=== PATIENT | female | born 1945 | race Caucasian/White ===

== ENCOUNTER 2016-08-14 06:12 | Day surgery (SDC) | payer MEDICARE, OTHER ==
--- NOTE | ~2016-08-14 | OP ---
Record Of Operation [facility] [address] [place]. [address] NAME: KESHIA JENKINS : 41 STATUS : REG [facility]#: [id number] AGE: 71 ADM/REG DATE : 08/14/16 MR#: [id number] REPORT SERV DATE: 08/14/16 DICTATED BY: ASHISH CANTRELL DATE: 08/14/16 REPORT STATUS : Draft TRANSCRIBED BY: MODL DATE: 08/14/16 DATE OF PROCEDURE: PROCEDURE PERFORMED: Fiberoptic bronchoscopy. Bronchoscopy with endobronchial ultrasound. Transbronchial needle aspiration of 3 separate lymph node stations. INDICATION: Bronchogenic carcinoma with adenopathy. DESCRIPTION OF PROCEDURE: After the risks and benefits were explained, informed consent was obtained. General anesthesia was provided by Anesthesiology with placement of an LMA artificial airway. The bronchoscope was advanced via the LMA and beyond the vocal cords without difficulty. The entire bronchial tree was inspected. There were no endobronchial lesions, though there were changes of chronic bronchitis throughout. After airway inspection, we switched to the endobronchial ultrasound scope. We identified a fairly large level 7 lymph node which was sampled total of six times, two for direct examination, two for cell block, and two more for direct examination. Then, the level 10R lymph node which was also sampled four times and then, level 4R lymph node which was smaller, located between the pulmonary artery and aorta, but easily visualized and that was sampled for a direct cytologic examination and cell block. Direct examination did not reveal any malignancy in any of the samples, though the samples did contain lymphoid tissue. 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 AJ/MARYSOL Ashish Cantrell M.D. / [id number] CC: Erin Hamm M.D.
[~2016-08-14 06:12] MED LIST: ANOROELLIPTA INH; ASAB PO; ATIVAN2 MG PO; ATV1 PO; CALTRA600D PO; CRESTOR10 PO; CRESTOR40 MG PO; FOSAMAX70 MG PO; KLONO1 PO; MEP50TAB PO; NEXIUM40 PO; NITROSTAT0.4 MG SL; OS500+D PO; PEP20 PO; PLAV; PLAVIX PO; PRIN10 PO; PRIN20 PO; PRIN5 PO; PROTON; PROTONIX PO; TOPXL100 PO; TOPXL50 PO; WELLXL300 PO; ZANTAC 150 PO
[2016-08-14 06:31] LABS: HEMATOCRIT 39.4 % (36.0-48.0); HEMOGLOBIN 13.1 g/dL (12.0-16.0)
[2016-08-14 06:44] LABS: BUN (BLOOD UREA NITROGEN) 20 MG/DL (6-23); CALCIUM, SERUM 8.8 MG/DL (8.5-10.4); CHLORIDE, SERUM 107 MMOL/L (96-112); CO2 (CARBON DIOXIDE) 26 MMOL/L (24-34); CREATININE 1.11 MG/DL (0.55-1.02); GFR AFRICAN AMERICAN 57 ML/MIN (>=60); GFR NON AFRICAN AMERICAN 49 ML/MIN (>=60); GLUCOSE, SERUM 95 MG/DL (60-99); POTASSIUM, SERUM 4.4 MMOL/L (3.5-5.3); SODIUM, SERUM 142 MMOL/L (135-148)
[2017-03-15] MEDS ORDERED: NITROSTAT0.4 MG SL (13:42)
[2017-03-15] MEDS ORDERED: ALBUTEROL0.083 % INH (13:43)
[2017-03-16] MEDS ORDERED: ZANTAC150 MG PO (05:38)
== END 2016-08-14 23:59 | disposition home health service (06) ==
LOC: DMU 06:12
PROVIDERS: Anesthesiology; Internal Medicine Pulmonary Disease
PROC: 07B74ZX Excision of Thorax Lymphatic, Percutaneous Endoscopic Approach, Diagnostic (ICD-10-PCS; principal; 2016-08-14 08:00)
DX: R59.0 Localized enlarged lymph nodes (principal); I10 Essential (primary) hypertension; J44.9 Chronic obstructive pulmonary disease, unspecified; I25.10 Atherosclerotic heart disease of native coronary artery without angina pectoris; E78.00 Pure hypercholesterolemia, unspecified; K21.9 Gastro-esophageal reflux disease without esophagitis; M19.90 Unspecified osteoarthritis, unspecified site; F41.9 Anxiety disorder, unspecified; Z79.82 Long term (current) use of aspirin; Z79.899 Other long term (current) drug therapy; Z90.89 Acquired absence of other organs; Z95.1 Presence of aortocoronary bypass graft; Z98.51 Tubal ligation status; Z98.890 Other specified postprocedural states
CPT/HCPCS: 80048; 85014; 85018; 88172; 88173; 88177; 88305; 93005; A9270-GY; C1725; J2250; J2405; J3010

== ENCOUNTER 2016-09-04 16:13 | Emergency (ER) | payer MEDICARE, OTHER ==
[2016-09-04 12:29] LABS: BASOPHILS 0.4 %; BASOPHILS ABSOLUTE 0.02 10/3/uL (0.0-0.16); EOSINOPHILS ABSOLUTE 0.28 10/3/uL (0.0-0.53); ER CBC TAT 0 Hrs 09 Mins; HEMATOCRIT 37.9 % (36.0-48.0); HEMOGLOBIN 12.4 g/dL (12.0-16.0); IMMATURE GRANULOCYTES 0.4 %; IMMATURE GRANULOCYTES ABSOLUTE 0.02 10/3/uL (0.0-0.11); LYMPHOCYTES ABSOLUTE 0.56 10/3/uL (0.67-4.30); MEAN CORPUS HGB CONC 32.7 g/dL (32.0-36.0); MEAN CORPUSCULAR HEMOGLOB 31.4 pg (26.0-34.0); MEAN CORPUSCULAR VOLUME 95.9 fL (80-100); MEAN PLATELET VOLUME 9.5 fL (9.2-13.0); MONOCYTES ABSOLUTE 1.01 10/3/uL (0.21-1.20); NEUTROPHILS 66.2 %; NEUTROPHILS ABSOLUTE 3.73 10/3/uL (2.02-8.40); PLATELET COUNT 251 10/3/uL (150-400); RED CELL COUNT 3.95 10/6/uL (4.0-5.6); WHITE BLOOD CELLS 5.6 10/3/uL (4.5-10.5)
[2016-09-04 12:32] LABS: MANUAL DIFF NO %
[2016-09-04 12:39] LABS: INTERNATIONAL NORMAL RATI 1.1 UNITS (-); PROTIME (NOT ORD) 13.7 SEC (12.0-14.5)
[2016-09-04 12:45] LABS: BUN (BLOOD UREA NITROGEN) 19 MG/DL (6-23); CALCIUM, SERUM 8.8 MG/DL (8.5-10.4); CHEST PAIN PROFILE TAT 0 Hrs 25 Mins; CHLORIDE, SERUM 110 MMOL/L (96-112); CO2 (CARBON DIOXIDE) 24 MMOL/L (24-34); CREATININE 1.22 MG/DL (0.55-1.02); GFR AFRICAN AMERICAN 51 ML/MIN (>=60); GFR NON AFRICAN AMERICAN 44 ML/MIN (>=60); GLUCOSE, SERUM 88 MG/DL (60-99); POTASSIUM, SERUM 4.5 MMOL/L (3.5-5.3); SODIUM, SERUM 142 MMOL/L (135-148); TROPONIN I <0.02 NG/ML (<0.05)
[2017-03-15] MEDS ORDERED: NITROSTAT0.4 MG SL (13:42)
[2017-03-15] MEDS ORDERED: ALBUTEROL0.083 % INH (13:43)
[2017-03-16] MEDS ORDERED: ZANTAC150 MG PO (05:38)
== END 2016-09-04 16:53 | disposition home or self-care (01) ==
LOC: ER 16:13
PROVIDERS: Emergency Medicine
DX: K20.8 Other esophagitis (principal); T66.XXXA Radiation sickness, unspecified, initial encounter; I25.2 Old myocardial infarction; K21.9 Gastro-esophageal reflux disease without esophagitis; Z79.82 Long term (current) use of aspirin; Z79.899 Other long term (current) drug therapy
CPT/HCPCS: 71020; 80048; 83735; 84484; 85025; 85610; 85730; 93005; 99285